=== PATIENT | male | born 2000 | race Caucasian/White ===

== ENCOUNTER 2021-01-31 22:32 | Emergency (ER) | payer MEDICAID ==
[~2021-01-31] VITALS: Ht 185.4 cm; Wt 73.4 kg
[2021-01-31 22:40] VITALS: BP 130/82
[2021-01-31] MEDS ORDERED: IV NORMAL SALINE 1,000ML 1,000 ML IV ONE (23:00)
--- NOTE | 2021-01-31 23:15 | PHYS DOC ---
Past History Past Medical History: No Pertinent History Past Surgical History: No Surgical History Alcohol Use: None General Adult EDM: Chief Complaint: OVERDOSE HPI: HPI: 20-year-old male presents via EMS with report of opiate overdose. Patient reportedly took 2 tabs of Percocet that was laced with fentanyl. Patient was found apneic and hypoxic down to 40% on O2 sat. EMS provided [id number] ventilation as well as 2 mg of Narcan intranasally and 2 mg IV. Patient subsequ ently awake and breathing on his own without supplemental O2. Patient reports was taking recreationally. Denies suicidal ideation. Patient is unsure when he took the medication and does not know how he arrived to the hospital. Patient reports he does not want to be in the ER and "hates hospitals ". Review of Systems: Review of Systems: Constitutional: Denies fever or chills Respiratory: History of apnea and hypoxia per EMS Cardiovascular: Denies chest pain or palpitations GI: Denies abdominal pain, nausea, or vomiting : Denies dysuria or hematuria Musculoskeletal: Denies back pain or joint pain Integument: Denies rash or skin lesions Neurologic: Denies headache, focal weakness or sensory changes Complete systems were reviewed and found to be within normal limits, except as documented in this note. Current Medications: Current Meds: Current Medications Medications (Trade) Dose Ordered Sig/Fermin Start Time Stop Time Status Last Admin Dose Admin Sodium Chloride 1,000 ml @ 1,000 mls/hr 1X ONCE 01/31/21 23:00 01/31/21 23:59 Allergies: Allergies: Allergies Coded Allergies Type Severity Reaction Last Updated Verified No Known Drug Allergies 01/31/21 No Physical Exam: PE: Constitutional: Well developed, well nourished, somnolent but arousable to voice, disheveled HENT: Normocephalic, atraumatic Eyes: PERRL at 4 mm, EOMI, conjunctiva normal, no discharge Neck: Normal range of motion, supple Lungs & Thorax: No respiratory distress, equal chest rise and fall Abdomen: Soft, no tenderness, no guarding/rebound tenderness/distention Skin: Warm, dry, no erythema, no rash, healing abrasions to face/arms/legs Extremities: No tenderness, ROM intact, no edema Neurologic: Alert and oriented X 3, walks with steady gait, no focal deficits noted Psychologic: Affect sleepy but intermittently agitated, denies suicidal ideation Current Patient Data: Vital Signs: Vital Signs Date Time Temp Pulse Resp B/P (MAP) Pulse Ox O2 Delivery O2 Flow Rate FiO2 01/31/21 22:40 97.2 77 18 130/82 (98) 100 Room Air EKG: EKG: [] Radiology/Procedures: Radiology/Procedures: [] Heart Score: C/O Chest Pain: N/A Course & Med Decision Making: Course & Med Decision Making Pertinent Lab studies reviewed. (See chart for details) Patient presents via EMS with report of drug overdose. Patient reportedly took Percocet laced with fentanyl x2 tabs. Unclear exactly timing of overdose. Patient was hypoxic upon EMS arrival requiring [id number] breathing as well as Narcan. Patient received 2 mg intranasally and 2 mg IV prior to arrival. Patient alert and oriented upon arrival. Patient initially refusing care. Patient was able to be moved to ER bed with monitoring initiated. Patient subsequently became agitated and requesting to leave. Patient is able to walk with steady gait. AMA form signed. Patient acknowledges understanding and agreement with risks of leaving AMA including permanent disability and/or . Discharge paperwork in process of being printed however patient left prior to receiving paperwork. [employer] ) Disclaimer: [employer] ) Disclaimer: This electronic medical record was generated, in whole or in part, using a voice recognition dictation system. Departure Departure: Impression: Primary Impression: Opiate or related narcotic overdose Qualified Codes: T40.601A - Poisoning by unspecified narcotics, accidental (unintentional), initial encounter Additional Impression: Left against medical advice Disposition: 07 LEFT AGAINST MEDICAL ADVICE Condition: GUARDED Patient Instructions: Alcohol and Drug Addiction, Finding Treatment, Discharge Against Medical Advice, Drug Abuse, FAQs, Narcotic Overdose Additional Instructions: Please call [facility] at to seek help for your mental health and/or drug/alcohol abuse. HÉCTOR GONZALEZ DO January 31, 2021 23:15
[2021-02-01 00:01] LABS: CALCIUM 8.7 mg/dL (8.5-10.1); CREATININE 0.9 mg/dL (0.7-1.3); GFR 107.6; POTASSIUM 3.8 mmol/L (3.5-5.1)
[2021-02-01 00:03] LABS: BASO % 1 % (0-3); EOS # 0.4 x10^3/uL (0.0-0.7); EOS % 6 % (0-3); HEMATOCRIT 38.7 % (39.0-53.0); HEMOGLOBIN 12.9 g/dL (13.0-17.5); LYMPH # 1.7 x10^3/uL (1.0-4.8); LYMPH % 24 % (24-48); MEAN CORPUSCULAR HEMOGLOBIN 29 pg (25-35); MEAN CORPUSCULAR HGB CONC 33 g/dL (31-37); MEAN CORPUSCULAR VOLUME 85 fL (79-100); MONO # 0.5 x10^3/uL (0.0-1.1); MONO % 7 % (0-9); NEUT # 4.3 x10^3uL (1.8-7.7); NEUT % 63 % (31-73); PLATELET COUNT 189 x10^3/uL (140-400); RED BLOOD COUNT 4.53 x10^6/uL (4.30-5.70); RED CELL DISTRIBUTION WIDTH 15.1 % (11.5-14.5); WHITE BLOOD COUNT 6.8 x10^3/uL (4.0-11.0)
[2021-02-01 00:11] LABS: ACETAMIN < 2 mcg/mL (10-30); ETHANOL < 10 mg/dL (0-10); SALIC 2.8 mg/dL (2.8-20.0)
[2021-02-01 00:15] LABS: ALBUMIN 3.6 g/dL (3.4-5.0); ALBUMIN/GLOBULIN RATIO 1.1 (1.0-1.7); MAGNESIUM 2.3 mg/dL (1.8-2.4); TOTAL BILIRUBIN 0.3 mg/dL (0.2-1.0); TOTAL PROTEIN 6.8 g/dL (6.4-8.2)
== END 2021-01-31 23:04 | disposition left against medical advice (07) ==
LOC: ER 22:32
DX: T40.601A Poisoning by unspecified narcotics, accidental (unintentional), initial encounter (principal); R06.81 Apnea, not elsewhere classified; R09.02 Hypoxemia; Y92.89 Other specified places as the place of occurrence of the external cause
CPT/HCPCS: 36415; 80053; 83735; 85025; 99283; G0480; 80329

== ENCOUNTER 2021-06-05 18:45 | Emergency (ER) | payer MEDICAID | END 2021-06-05 18:53 | disposition left against medical advice (07) | LOC: ER 18:45 | DX: R55 Syncope and collapse (principal); R40.4 Transient alteration of awareness; Z53.21 Procedure and treatment not carried out due to patient leaving prior to being seen by health care provider ==